=== PATIENT | male | born 1980 ===

== ENCOUNTER 2021-04-13 09:18 | Emergency (ER) | payer SELFPAY ==
[2021-04-13 09:28] VITALS: BP 141/82
[2021-04-13] MEDS ORDERED: oxyCODONE /ACETAMINOPHEN 5-325MG TAB PO ONE (10:40)
[2021-04-13] MEDS ORDERED: LIDOCAINE (1%) 10 MG/1 ML VIAL 20 ML MDV INFILTRATI ONE (10:40)
--- NOTE | 2021-04-13 10:44 | Emergency Department Report ---
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 He reports he was bitten by an insect and was seen at an urgent care 8 days ago. Patient states at that time he was placed on Keflex and has been taking 500 mg of Keflex 3 times a day, however his symptoms are not improving. He denies any fever/chills/sweats or difficulty moving his leg. Patient rates his current pain is 8/10 in severity. He reports his diabetes is well controlled and that his morning glucose levels were 129 today - Related Data Previous Rx's Medication Instructions Recorded Last Taken Type Acetaminophen 1,000 mg PO Q8H PRN #24 capsule 04/13/21 Unknown Rx Acetaminophen/Codeine [Tylenol 1 tab PO Q8H PRN #3 tab 04/13/21 Unknown Rx /Codeine # 3 tab] Clindamycin [Clindamycin CAP] 300 mg PO Q6H 10 Days #40 capsule 04/13/21 Unknown Rx Mupirocin [Bactroban 2% OINT] 1 applic TP TID 10 Days #1 tube 04/13/21 Unknown Rx Allergies Allergy/AdvReac Type Severity Reaction Status Date / Time No Known Allergies Allergy Unverified 04/13/21 09:22 ED Review of Systems ROS: Stated complaint: RT LEG BITE AND BRUISED Other details as noted in HPI Constitutional: denies: chills, diaphoresis, fever, malaise, weakness Musculoskeletal: denies: arthralgia Skin: change in color Neurological: denies: numbness, paresthesias ED Past Medical Hx - Past Medical History Previous Medical History?: Yes Hx Diabetes: Yes - Surgical History Past Surgical History?: No Additional Surgical History: HAND - Social History Smoking Status: Never Smoker Substance Use Type: Alcohol - Medications Home Medications: Home Medications Medication Instructions Recorded Confirmed Last Taken Type Acetaminophen 1,000 mg PO Q8H PRN #24 capsule 04/13/21 Unknown Rx Acetaminophen/Codeine [Tylenol 1 tab PO Q8H PRN #3 tab 04/13/21 Unknown Rx /Codeine # 3 tab] Clindamycin [Clindamycin CAP] 300 mg PO Q6H 10 Days #40 capsule 04/13/21 Unknown Rx Mupirocin [Bactroban 2% OINT] 1 applic TP TID 10 Days #1 tube 04/13/21 Unknown Rx ED Physical Exam - General Limitations: Language Barrier General appearance: alert, in no apparent distress - Head Head exam: Present: atraumatic, normocephalic - Eye Eye exam: Present: normal appearance - Respiratory Respiratory exam: Absent: respiratory distress - Cardiovascular Cardiovascular Exam: Present: regular rate - Neurological Exam Neurological exam: Present: alert, oriented X3 - Psychiatric Psychiatric exam: Present: normal affect, normal mood - Skin Skin exam: Present: warm, dry, intact, erythema (Approximately 4 cm round erythemic area noted to right lateral calf with central swelling and fluctuance) ED Course Vital Signs 04/13/21 09:25 Temperature 98.9 F Pulse Rate 67 Respiratory 18 Rate Blood Pressure 141/82 O2 Sat by Pulse 99 Oximetry - I & D Leg Type of Procedure: Simple Site: Right lower leg Blade Size: 11 I & D Procedure: betadine prep, sterile drapes applied, sterile dressing applied Progress: 8 cc of lidocaine 1% without epi used to anesthetize area. Moderate purulent drainage obtained from wound. Sample sent for culture. Minimal bleeding occurred. Patient tolerated procedure well without any immediate complications. ED Medical Decision Making - Medical Decision Making 40-year-old male patient with history of diabetes presents with complaints of right lower leg abscess x2 weeks. He reports he was bitten by an insect and was seen at an urgent care 8 days ago. Patient states at that time he was placed on Keflex and has been taking 500 mg of Keflex 3 times a day, however his symptoms are not improving. He denies any fever/chills/sweats or difficulty moving his leg. Patient rates his current pain is 8/10 in severity. He reports his diabetes is well controlled and that his morning glucose levels were 129 today Incision and drainage performed. Patient tolerated procedure well without any immediate complications. Patient to discontinue Keflex and start clindamycin and mupirocin. Recommend follow-up with PCP in 2 to 3 days for wound recheck. He is well-appearing, his vitals are within normal limits, he is stable for discharge home. Discussed wound care and signs and symptoms that should prompt immediate return to the emergency department in detail patient verbalized understanding Critical care attestation.: If time is entered above; I have spent that time in minutes in the direct care of this critically ill patient, excluding procedure time. ED Disposition Clinical Impression: Abscess of leg, right Disposition: [id number] TO HOME OR SELFCARE Is pt being admited?: No Condition: Stable Instructions: Skin Abscess, Incision and Drainage, Care After Prescriptions: Acetaminophen 1,000 mg PO Q8H PRN #24 capsule PRN Reason: pain Mupirocin [Bactroban 2% OINT] 1 applic TP TID 10 Days #1 tube Clindamycin [Clindamycin CAP] 300 mg PO Q6H 10 Days #40 capsule Acetaminophen/Codeine [Tylenol /Codeine # 3 tab] 1 tab PO Q8H PRN #3 tab PRN Reason: Pain , Severe (7-10) Referrals: PRIMARY CARE, [Referring] - 2-3 Days (wound recheck ) Print Language: YAKUT
== END 2021-04-13 12:11 | disposition home or self-care (01) ==
LOC: ED 09:18
DX: L02.415 Cutaneous abscess of right lower limb (principal); E11.9 Type 2 diabetes mellitus without complications; Z72.89 Other problems related to lifestyle; Z79.899 Other long term (current) drug therapy
CPT/HCPCS: 87076; 87116; 87186; 99283